=== PATIENT | male | born 1965 ===

== ENCOUNTER → 2020-07-08 | Outpatient (CLI) | payer SELFPAY | LOC: WCC 13:50 | PROVIDERS: ATTEND Family Medicine Adult Medicine | DX: L89.314 Pressure ulcer of right buttock, stage 4 (principal); A41.9 Sepsis, unspecified organism; J18.9 Pneumonia, unspecified organism; I10 Essential (primary) hypertension; I50.9 Heart failure, unspecified; B96.89 Other specified bacterial agents as the cause of diseases classified elsewhere; D64.9 Anemia, unspecified; M13.80 Other specified arthritis, unspecified site; Z21 Asymptomatic human immunodeficiency virus [HIV] infection status; Z74.01 Bed confinement status | CPT/HCPCS: 87071; 87075; 87205 ==